=== PATIENT | male | born 1995 | race Caucasian/White ===

== ENCOUNTER 2016-12-29 14:54 | Emergency (ER) | payer OTHER ==
[2016-12-29 15:00] VITALS: BP 139/89
[2016-12-29] MEDS ORDERED: Lidocaine 2% VISCOUS* 15 ML UDC PO ONE (15:22)
[2016-12-29] MEDS ORDERED: Al Hydrox/Mg Hydrox/Simet LIQ* 30 ML UDC PO ONE (15:22)
--- NOTE | 2016-12-29 15:29 | UC ---
Abdominal Pain Male HPI - History of Current Complaint Chief Complaint: UCGI Stated Complaint: STOMACH PAIN Hx Obtained From: Patient Onset/Duration: Gradual Onset - started last evening with burning in stomach. has not been able to eat or drink much d/t nausea. no diarrhea or fever. states may be partially related to life stressors (moved, new job, end of relationship) . denies drinking or eating diff yesterday. sharp pain in R side seemed worse after vomiting Severity Initially: Mild Severity Currently: Moderate Location: Discrete At: RUQ Radiates: No Character: Burning Aggravating Factor(s):: Food Alleviating Factor(s): Nothing Associated Signs And Symptoms: Positive: Nausea. Negative: Fever, Constipation , Urinary Symptoms, Diarrhea - Allergies/Home Medications Allergies/Adverse Reactions: Allergies Allergy/AdvReac Type Severity Reaction Status Date / Time No Known Allergies Allergy Verified 12/29/16 15:00 PMH/Surg Hx/FS Hx/Imm Hx Previously Healthy: Yes - Surgical History Surgical History: None - Family History Known Family History: Positive: None - Social History Occupation: Employed Full-time - teacher Lives: With Family Alcohol Use: Occasionally Substance Use Type: None Smoking Status (MU): Never Smoked Tobacco Review of Systems Constitutional: Negative Respiratory: Negative Cardiovascular: Negative Gastrointestinal: Abdominal Pain, Nausea Genitourinary: Negative Neurological: Negative Psychological: Other - states stressed, but has good support group and denies lethal ideation when asked All Other Systems Reviewed And Are Negative: Yes Physical Exam Triage Information Reviewed: Yes Appearance: Well-Appearing, No Pain Distress, Well-Nourished Vital Signs: Initial Vital Signs Temp 98.4 F 12/29/16 14:57 Pulse 63 12/29/16 14:57 Resp 20 12/29/16 14:57 BP 139/89 12/29/16 14:57 Pulse Ox 100 12/29/16 14:57 Vital Signs Reviewed: Yes Respiratory Exam: Normal Cardiovascular Exam: Normal Abdomen Description: Positive: No Organomegaly, Soft, Other: - minor RUQ pain with palpation. Negative: Distended, Guarding, Peritoneal Signs Bowel Sounds: Positive: Present Neurological Exam: Normal Psychological Exam: Normal Skin Exam: Normal Skin: Negative: rashes Re-Evaluation - Re-Evaluation First Eval Change: Improved - states no longer nauseous. still has a "burning: pain RUQ area worse with deep breaths. Second Eval Change: Unchanged - pt has taken and mahendra water and ibuprofen w/o nausea. Abd Pain Male Course/Dx - Differential Dx/Clinical Impression Differential Diagnosis/HQI/PQRI: Gall Bladder Disease, Peptic Ulcer Disease, Other - gastritis Provider Diagnoses: gastritis. abdominal muscle strain Discharge - Discharge Plan Condition: Stable Disposition: HOME Patient Education Materials: Gastritis (ED) Referrals: Steven Merritt MD [Primary Care Provider] - 2 Days (if no better) Additional Instructions: stay on bland diet and drink plenty of fluids use over the counter Maalox or Mylanta as directed for 48 hours report to ER if pain worsens or other symptoms develop
[2016-12-29] MEDS ORDERED: Ibuprofen TAB* 600 MG PO ONE (16:08)
== END 2016-12-29 16:52 | disposition home or self-care (01) ==
LOC: UCEAST 14:54
DX: K29.70 Gastritis, unspecified, without bleeding (principal); S39.011A Strain of muscle, fascia and tendon of abdomen, initial encounter; X58.XXXA Exposure to other specified factors, initial encounter; Y93.9 Activity, unspecified; Y99.9 Unspecified external cause status
CPT/HCPCS: 99202; A9270-GY; G0463

== ENCOUNTER 2018-05-20 11:00 | Emergency (ER) | payer OTHER ==
[2018-05-20 11:17] VITALS: BP 104/73
--- NOTE | 2018-05-20 12:37 | UC ---
Shoulder Pain HPI - HPI Summary HPI Summary: was playing hockey last night, tripped and slipped into the boards. hitting his right shoulder, head and neck. He states he did lose conciousness when he hit, but that it was quick, and he has no feeling of "concussion", or neck pain now, just swelling in his right shoulder. no numbness or tingling down his arm. - History of Current Complaint Chief Complaint: UCUpperExtremity Stated Complaint: SHOULDER INJURY Time Seen by Provider: 05/20/18 11:57 Hx Obtained From: Patient Onset/Duration: Sudden Onset, Lasting Hours, Still Present Timing: Constant Severity Initially: Moderate Severity Currently: Moderate Location Of Pain: Is Discrete @ - RIGHT SHOULDER Pain Intensity: 7 Pain Scale Used: 0-10 Numeric Character: Sharp Aggravating Factor(s): Movement Alleviating Factor(s): Rest Related History: Dominant Hand Right - Allergies/Home Medications Allergies/Adverse Reactions: Allergies Allergy/AdvReac Type Severity Reaction Status Date / Time No Known Allergies Allergy Verified 05/20/18 11:16 Home Medications: Home Medications Acetaminophen [Tylenol Extra Strength] 1,000 mg PO ONCE PRN 05/20/18 [History Confirmed 05/20/18] PMH/Surg Hx/FS Hx/Imm Hx Previously Healthy: Yes - Surgical History Surgical History: None - Family History Known Family History: Positive: None - Social History Alcohol Use: Weekly Substance Use Type: None Smoking Status (MU): Never Smoked Tobacco Review of Systems All Other Systems Reviewed And Are Negative: Yes Constitutional: Positive: Negative Skin: Positive: Negative Respiratory: Positive: Negative Cardiovascular: Positive: Negative Gastrointestinal: Positive: Negative Musculoskeletal: Positive: Arthralgia, Decreased ROM Physical Exam Triage Information Reviewed: Yes Appearance: Well-Appearing, No Pain Distress, Well-Nourished, Other: - SITTING WITH RIGHT SHOULDER DROPPED Vital Signs: Initial Vital Signs Temp 98.8 F 05/20/18 11:12 Pulse 60 05/20/18 11:12 Resp 18 05/20/18 11:12 BP 104/73 05/20/18 11:12 Pulse Ox 98 05/20/18 11:12 Vital Signs Reviewed: Yes Eyes: Positive: Conjunctiva Clear ENT: Positive: Hearing grossly normal Neck: Positive: Supple Respiratory: Positive: No respiratory distress, No accessory muscle use Cardiovascular: Positive: Pulses Normal Abdomen Description: Positive: Soft Musculoskeletal: Positive: No Edema, ROM Limited @ - RIGHT SHOULDER, Other: - TTP RIGHT AC JOINT AND DISTAL CLAVICLE Neurological: Positive: Alert Psychological: Positive: Age Appropriate Behavior Skin: Negative: Rashes Diagnostics - Radiology RIGHT SHOULDER XRAYS Radiology Interpretation Completed By: Radiologist Summary of Radiographic Findings: 1. Mildly comminuted fracture at the distal clavicle centered approximate 1.5 cm from the acromioclavicular joint with one bone width superior and posterior displacement and transverse overriding of the fracture fragments. 2. AC joint separation with evidence for acromioclavicular ligament tears. Probable intact coracoclavicular ligaments. Shoulder Course/Dx - Course Assessment/Plan: PT SEES DR. JACINTO - [facility] [place]. WILL F/U WITH HIM. - Differential Dx/Diagnosis Provider Diagnosis: Right clavicle fracture, Separation of right acromioclavicular joint Discharge - Sign-Out/Discharge Documenting (check all that apply): Patient Departure All imaging exams completed and their final reports reviewed: Yes - Discharge Plan Condition: Stable Disposition: HOME Patient Education Materials: Acromioclavicular Separation (ED), Clavicle Fracture (ED) Forms: *Work Release Referrals: Steven Merritt MD [Primary Care Provider] - If Needed Marla ALFORD,Steven Fry [Medical Doctor] - 2 Days Additional Instructions: XRAYS OF YOUR RIGHT SHOULDER SHOW: 1. Mildly comminuted fracture at the distal clavicle centered approximate 1.5 cm from the acromioclavicular joint with one bone width superior and posterior displacement and transverse overriding of the fracture fragments. 2. AC joint separation with evidence for acromioclavicular ligament tears. Probable intact coracoclavicular ligaments. CALL DR. JACINTO'S OFFICE TODAY FOR A FOLLOW-UP APPT THIS WEEK. WEAR THE SHOULDER IMMOBILIZER. OTC IBUPROFEN AND IBUPROFEN NEEDED FOR PAIN. GO TO THE ER WITHOUT FAIL IF YOU DEVELOP NUMBNESS, COLOR CHANGE, WORSENING PAIN IN YOUR ARM/HAND OR ANY OTHER CONCERNING SYMPTOMS. - Billing Disposition and Condition Condition: STABLE Disposition: Home
== END 2018-05-20 13:10 | disposition home or self-care (01) ==
LOC: UCEAST 11:00
DX: S42.001A Fracture of unspecified part of right clavicle, initial encounter for closed fracture (principal); S43.101A Unspecified dislocation of right acromioclavicular joint, initial encounter; W01.0XXA Fall on same level from slipping, tripping and stumbling without subsequent striking against object, initial encounter; Y92.9 Unspecified place or not applicable
CPT/HCPCS: 99211; G0463